=== PATIENT | female | born 1970 | race African-American/Black ===

== ENCOUNTER 2016-07-27 07:20 | Emergency (ER) | payer MEDICAID ==
[~2016-07-27] VITALS: Ht 167.6 cm; Wt 74.8 kg
[~2016-07-27 07:20] MED LIST: BACTRIM DS TAB1 EAC1 ORAL; CIPROFLOXACIN500 M2 ORAL; DIFLUCAN150 MG PO
[2016-07-27 07:30] VITALS: BP 133/81
--- NOTE | 2016-07-27 07:51 | Emergency Room Report ---
History of Present Illness General Chief Complaint: Pain Source: Patient Present Illness HPI Patient presents with complaints of left lower back pain States that she feels is her sciatica Denies any chest pain or shortness of breath Triage makes a note that the patient was given Abilify and is here for reaction to that However the patient denies that States that she has pain to the left hip after a fall she sustained last week Patient reports tripping on a curb And thought the left side Denies any head injury denies any loss of consciousness Reports her pain is 10 out of 10 sharp with some radiation into the buttock area Allergies: Coded Allergies: No Known Allergies (Unverified , 09/14/14) Patient History Past Medical History: see triage record Pertinent Family History: none Last Menstrual Period: now Now: No Reviewed Nursing Documentation: PMH: Agreed, PSxH: Agreed Nursing Documentation-PMH Past Medical History: No History, Except For History Of Psychiatric Problem: Yes Hx Neurological Problems: Yes - chronic pain Review of Systems All Other Systems: negative except mentioned in HPI Physical Exam Vital Signs Date Time Temp Pulse Resp B/P Pulse Ox O2 Delivery O2 Flow Rate FiO2 07/27/16 07:12 98.1 88 18 133/81 98 Room Air Sp02 EP Interpretation: reviewed, normal General Appearance: mild distress - Appears in acute pain Head: normocephalic, atraumatic Eyes: bilateral eye EOMI, bilateral eye PERRL ENT: normal pharynx, no angioedema Neck: supple, thyroid normal Respiratory: lungs clear Cardiovascular #1: regular rate, rhythm Gastrointestinal: non tender, soft Musculoskeletal: other - Patient is tender on palpation of the left posterior superior iliac crest area, midline is nontender no obvious step-offs, sensory is intact Neurologic: alert, oriented x3, responsive Skin: no rash Lymphatic: no adenopathy Medical Decision Making Diagnostic Impression: Primary Impression: Back pain Additional Impressions: Sciatic leg pain Contusion ER Course Patient's CT imaging was negative Patient has done significantly better and is at this time ambulatory in her room And is stable for close outpatient followup Labs Test 07/27/16 08:20 Urine HCG, Qualitative Negative CT/MRI/US Diagnostic Results CT/MRI/US Diagnostic Results : Impression CT pelvic no acute disease Last Vital Signs Date Time Temp Pulse Resp B/P Pulse Ox O2 Delivery O2 Flow Rate FiO2 07/27/16 07:30 98.1 88 18 133/81 98 Room Air Status: improved Disposition: HOME, SELF-CARE Condition: Improved Scripts Methocarbamol* (ROBAXIN-750*) 750 Mg Tablet 750 MG PO TID, #21 TAB 0 Refills Prov: JUAN CORDERO D.O. 07/27/16 Ibuprofen* (MOTRIN*) 600 Mg Tablet 600 MG ORAL Q8H Y for For Pain, #20 TAB 0 Refills Prov: JUAN CORDERO D.O. 07/27/16 Referrals: [facility]ERR[facility] (PCP) Additional Instructions: Patient is provided with the discharge instructions notified to follow up with primary doctor in the next 2-3 days otherwise return to the er with any worsening symptoms. JUAN CORDERO D.O. Jul 27, 2016 07:51
[2016-07-27] MEDS ORDERED: Ketorolac 60mg Inj IM ONE (08:00)
[2016-07-27] MEDS ORDERED: Norco 5mg/325mg tab ORAL ONE (08:00)
--- NOTE | 2016-07-27 09:50 | Diagnostic Imaging Report ---
Indication: Left-sided pelvic pain Technique: Noncontrast spiral acquisitions obtained through the pelvis. Multiplanar reconstructions generated. Total dose length product 377 mGycm. CTDIvol(s) 13 mGy Comparison: None Findings: A small collection of gas bubbles is seen fairly deep within the subcutaneous fat of the left upper lateral buttock region. This area measures approximately 2.8 x 1.2 cm. There is minimal infiltration of the surrounding fat but no definite associated fluid collection. There are mild degenerative changes of the pubic symphysis. No acute fractures. No dislocations. Joint spaces are preserved. There is no evidence of significant soft tissue contusion. The included pelvic viscera are unremarkable Impression: Small collection of gas bubbles within the left upper buttock. Per discussion with referring physician the patient recently had a subcutaneous injection at that location so findings are presumably related to such No acute bony trauma The CT scanner at [facility] is accredited by the [employer] and the scans are performed using protocols designed to limit radiation exposure to as low as reasonably achievable to attain images of sufficient resolution adequate for diagnostic evaluation.
[2016-07-27 10:00] VITALS: BP 125/83
[2016-07-27] MEDS ORDERED: IBUPROFEN600 MG ORAL (10:02)
[2016-07-27] MEDS ORDERED: ROBAXIN-750750 MG PO (10:03)
[2016-07-27 10:33] VITALS: BP 125/83
[2016-07-28] MEDS ORDERED: IBUPROFEN600 MG ORAL (09:15)
[2016-07-28] MEDS ORDERED: NITROFURANTOIN100 M2 ORAL (09:15)
== END 2016-07-27 10:34 | disposition home or self-care (01) ==
LOC: EDBD 07:20 → EMR 07:41
DX: M54.42 Lumbago with sciatica, left side (principal); T14.8 Other injury of unspecified body region; W10.1XXA Fall (on)(from) sidewalk curb, initial encounter; Y92.89 Other specified places as the place of occurrence of the external cause; Y99.9 Unspecified external cause status; G89.29 Other chronic pain
CPT/HCPCS: 72192; 81025; 96372; 99284

== ENCOUNTER 2016-07-28 07:24 | Emergency (ER) | payer MEDICAID ==
[~2016-07-28] VITALS: Ht 167.6 cm; Wt 74.8 kg
[~2016-07-28 07:24] MED LIST changes: +IBUPROFEN600 MG ORAL; +ROBAXIN-750750 MG PO
[2016-07-28 07:45] VITALS: BP 144/99
--- NOTE | 2016-07-28 07:51 | Emergency Room Report ---
History of Present Illness General Chief Complaint: Lower Back Pain or Injury Source: Patient Present Illness HPI Patient presents with one week of lower back pain and pain in her left flank and hip. She denies any trauma recently. She's had chronic back pain after an epidural many years ago. She also has a foul odor to her urine and thinks she might have a bladder infection. Her last period was late but she does not think she is . She feels some strange movements in her lower abdomen but feels this might be related to her imagination. The patient recently smoked some marijuana this morning and also is taking Abilify. She denies any discharge. There is no suprapubic pain. No nausea vomiting diarrhea. She denies dizziness when she stands up. No rashes. No chest pain, cough, sore throat. Allergies: Coded Allergies: No Known Allergies (Unverified , 09/14/14) Patient History Past Medical History: see triage record Social History: Reports: drug use Social History Narrative at home Last Menstrual Period: 07/23/16 Now: No Reviewed Nursing Documentation: PMH: Agreed, PSxH: Agreed Nursing Documentation-PMH Past Medical History: No Stated History Hx Neurological Problems: Yes - chronic pain Review of Systems All Other Systems: negative except mentioned in HPI Physical Exam Vital Signs Date Time Temp Pulse Resp B/P Pulse Ox O2 Delivery O2 Flow Rate FiO2 07/28/16 07:31 98.8 143 18 122/86 97 Room Air Sp02 EP Interpretation: reviewed, normal General Appearance: well appearing, no apparent distress, GCS 15 Head: normocephalic Eyes: bilateral eye PERRL, bilateral eye normal inspection ENT: moist mucus membranes Neck: supple Respiratory: lungs clear, normal breath sounds Cardiovascular #1: regular rate, rhythm Cardiovascular #2: 2+ radial (R) Gastrointestinal: normal inspection, normal bowel sounds, non tender, no mass, non-distended Musculoskeletal: back normal, gait/station normal, normal range of motion Neurologic: alert, oriented x3 - grossly normal neuro Psychiatric: mood/affect normal - slight strange affect, no suicidal/homicidal ideation Skin: normal inspection, warm/dry Medical Decision Making Diagnostic Impression: Primary Impression: UTI (urinary tract infection) Qualified Codes: N30.00 - Acute cystitis without hematuria Additional Impression: Back pain Qualified Codes: M54.5 - Low back pain ER Course The patient presents with back and flank pain. She's had a normal menses. Differential includes UTI, pyelonephritis, chronic back pain from an epidural amongst others. We need to exclude . In addition the patient's tachycardic. Laboratory will be undertaken in including EKG. The patient be initially treated with Tylenol. Labs with pyuria. Pain resolved. Patient stable for outpatient observation and treatment. Laboratory Tests Test 07/28/16 07:40 07/28/16 07:59 Urine Color Pale yellow Urine Appearance Clear Urine pH 6 (4.5-8.0) Urine Specific Nicholson 1.015 (1.005-1.035) Urine Protein 1+ (NEGATIVE) H Urine Glucose (UA) Negative (NEGATIVE) Urine Ketones Negative (NEGATIVE) Urine Occult Blood Negative (NEGATIVE) Urine Nitrite Negative (NEGATIVE) Urine Bilirubin Negative (NEGATIVE) Urine Urobilinogen Normal MG/DL (0.0-1.0) Urine Leukocyte Esterase 1+ (NEGATIVE) H Urine RBC 0-2 /HPF (0 - 2) Urine WBC 5-10 /HPF (0 - 2) H Urine Squamous Epithelial Cells Few /LPF (NONE/OCC) Urine Bacteria Few /HPF (NONE) Urine HCG, Qualitative Negative Urine Opiates Screen Negative (NEGATIVE) Urine Barbiturates Screen Negative (NEGATIVE) Phencyclidine (PCP) Screen Negative (NEGATIVE) Urine Amphetamines Screen Negative (NEGATIVE) Urine Benzodiazepines Screen Negative (NEGATIVE) Urine Cocaine Screen Negative (NEGATIVE) Urine Marijuana (THC) Screen Negative (NEGATIVE) White Blood Count 5.8 K/UL (4.8-10.8) Red Blood Count 4.80 M/UL (4.20-5.40) Hemoglobin 12.5 G/DL (12.0-16.0) Hematocrit 41.5 % (37.0-47.0) Mean Corpuscular Volume 86 FL (80-99) Mean Corpuscular Hemoglobin 26.0 PG (27.0-31.0) L Mean Corpuscular Hemoglobin Concent 30.0 G/DL (32.0-36.0) L Red Cell Distribution Width 14.8 % (11.6-14.8) Platelet Count 461 K/UL (150-450) H Mean Platelet Volume 5.8 FL (6.5-10.1) L Neutrophils (%) (Auto) 54.8 % (45.0-75.0) Lymphocytes (%) (Auto) 34.2 % (20.0-45.0) Monocytes (%) (Auto) 5.1 % (1.0-10.0) Eosinophils (%) (Auto) 4.1 % (0.0-3.0) H Basophils (%) (Auto) 1.9 % (0.0-2.0) Sodium Level 135 mEQ/L (135-145) Potassium Level 3.6 mEQ/L (3.4-4.9) Chloride Level 94 mEQ/L (98-107) L Carbon Dioxide Level 27 mEQ/L (20-30) Anion Gap 14 (5-15) Blood Urea Nitrogen 14 mg/dL (7-23) Creatinine 0.9 mg/dL (0.5-0.9) Estimate Glomerular Filtration Rate > 60 mL/min (>60) Glucose Level 98 mg/dL (74-106) Calcium Level 9.2 mg/dL (8.6-10.2) Total Bilirubin 0.2 mg/dL (0.0-1.2) Aspartate Amino Transferase (AST) 33 U/L (5-40) Alanine Aminotransferase (ALT) 28 U/L (3-33) Alkaline Phosphatase 75 U/L (35-104) Total Protein 7.5 g/dL (6.6-8.7) Albumin 4.3 g/dL (3.5-5.2) Globulin 3.2 g/dL Albumin/Globulin Ratio 1.3 (1.0-2.7) Lipase 25 U/L (< 60) EKG Diagnostic Results Rate: normal Rhythm: NSR ST Segments: no acute changes Rhythm Strip Diag. Results EP Interpretation: yes Rhythm: NSR, no PVC's, no ectopy, other - occasionally with some tachycardia Status: improved Disposition: HOME, SELF-CARE Condition: Improved Scripts Nitrofurantoin Monohyd/M-Cryst* (MACROBID 100 MG*) 100 Mg Capsule 100 MG ORAL EVERY 12 HOURS, #14 CAP Prov: Min Gonzalez M.D. 07/28/16 Ibuprofen* (MOTRIN*) 600 Mg Tablet 600 MG ORAL Q6H Y for For Pain, #14 TAB Prov: Min Gonzalez M.D. 07/28/16 Min Gonzalez M.D. Jul 28, 2016 07:51
[2016-07-28 08:04] LABS: APPEARANCE,URINE CLEAR; KETONES,URINE NEGATIVE (NEGATIVE); LEUKOCYTE ESTERASE ,URINE 1+ (NEGATIVE); NITRITE,URINE NEGATIVE (NEGATIVE); PH,URINE 6 (4.5-8.0); PROTEIN,URINE 1+ (NEGATIVE); UROBILINOGEN,URINE NORMAL MG/DL (0.0-1.0)
[2016-07-28 08:25] LABS: BASOPHILS % (AUTO) 1.9 % (0.0-2.0); EOSINOPHILS % (AUTO) 4.1 % (0.0-3.0); LYMPHOCYTES % (AUTO) 34.2 % (20.0-45.0); MEAN CORPUSCULAR VOLUME 86 FL (80-99); MEAN PLATELET VOLUME 5.8 FL (6.5-10.1); MONOCYTES % (AUTO) 5.1 % (1.0-10.0); NEUTROPHILS % (AUTO) 54.8 % (45.0-75.0); PLATELET COUNT 461 K/UL (150-450); RED CELL DISTRIBUTION WIDTH 14.8 % (11.6-14.8); WHITE BLOOD COUNT 5.8 K/UL (4.8-10.8)
[2016-07-28 08:27] LABS: BACTERIA,URINE FEW /HPF; RBC,URINE 0-2 /HPF (0 - 2); SQUAMOUS EPITHELIAL CELL,UR FEW /LPF (NONE/OCC)
[2016-07-28 08:34] LABS: ALANINE AMINOTRANSFERASE 28 U/L (3-33); ALBUMIN/GLOBULIN RATIO 1.3 (1.0-2.7); ANION GAP 14 (5-15); ASPARTATE AMINO TRANSFERASE 33 U/L (5-40); CALCIUM 9.2 mg/dL (8.6-10.2); CARBON DIOXIDE 27 mEQ/L (20-30); CHLORIDE 94 mEQ/L (98-107); CREATININE 0.9 mg/dL (0.5-0.9); GLOMERULAR FILTRATION RATE > 60 mL/min (>60); HEMOLYSIS 4; LIPASE 25 U/L (< 60); POTASSIUM 3.6 mEQ/L (3.4-4.9); SODIUM 135 mEQ/L (135-145); TOTAL PROTEIN 7.5 g/dL (6.6-8.7)
[2016-07-28 09:00] VITALS: BP 126/76
[2016-07-28] MEDS ORDERED: IBUPROFEN600 MG ORAL (09:15)
[2016-07-28] MEDS ORDERED: NITROFURANTOIN100 M2 ORAL (09:15)
[2016-07-28 09:39] VITALS: BP 126/76
--- NOTE | 2016-08-03 10:31 | Cardiology Report ---
APPROVED REPORT EKG Measurement Heart [id number] Normal sinus rhythm Possible Left atrial enlargement Borderline ECG
== END 2016-07-28 09:45 | disposition home or self-care (01) ==
LOC: EMR 07:49
DX: N30.00 Acute cystitis without hematuria (principal); M54.5 Low back pain; G89.29 Other chronic pain
CPT/HCPCS: 36415; 80053; 80300; 81003; 81025; 83690; 85025; 93005; 96361; 96374; 99284; J0696